=== PATIENT | female | born 1990 | race African-American/Black ===

== ENCOUNTER 2017-04-16 09:26 | Emergency (ER) | payer OTHER ==
[~2017-04-16] VITALS: Ht 165.1 cm; Wt 81.6 kg
[2017-04-16] MEDS ORDERED: NKM (09:39)
[2017-04-16 09:55] VITALS: BP 122/79
[2017-04-16] MEDS ORDERED: Fluorescein Strips ONE (10:02)
[2017-04-16] MEDS ORDERED: Tetracaine 0.5% Opth 4ml Soln ONE (10:02)
[2017-04-16] MEDS ORDERED: Fluorescein Strips BOTH EYES ONE (10:15)
[2017-04-16] MEDS ORDERED: Tetracaine 0.5% Opth 4ml Soln LEFT EYE ONE (10:15)
[2017-04-16 10:21] VITALS: BP 122/79
--- NOTE | 2017-04-16 11:15 | Emergency Room Report ---
History of Present Illness General Chief Complaint: Headache Source: Patient Present Illness HPI 27-year-old female, presenting with headache and eye pain, states that she got hit by her drumming steak yesterday. Complaining of pain to eye, denies any foreign body sensation. No blurry vision. Headache is around right-sided, throbbing, has not taken any pain medication. No nausea vomiting. No motor or sensory weakness Allergies: Coded Allergies: No Known Allergies (Unverified , 04/16/17) Patient History Past Medical History: see triage record Past Surgical History: none Pertinent Family History: none Now: No Reviewed Nursing Documentation: PMH: Agreed, PSxH: Agreed Nursing Documentation-PMH Past Medical History: No Stated History Review of Systems All Other Systems: negative except mentioned in HPI Physical Exam Vital Signs Date Time Temp Pulse Resp B/P (MAP) Pulse Ox O2 Delivery O2 Flow Rate FiO2 04/16/17 09:34 97.9 71 17 122/79 98 Room Air 97.9 Sp02 EP Interpretation: reviewed, normal General Appearance: alert, GCS 15, non-toxic, mild distress Head: normocephalic, atraumatic Eyes: right eye Scleral Injection, right eye other - No foreign body noted, extraocular movements intact, visual examination with fluorescein stain, no corneal abrasion ENT: normal ENT inspection, normal pharynx, normal voice, moist mucus membranes Neck: normal inspection, full range of motion, supple Respiratory: normal inspection, lungs clear, normal breath sounds, no respiratory distress, no retraction, no wheezing, speaking full sentences, chest symmetrical Cardiovascular #1: normal inspection, regular rate, rhythm, normal capillary refill Cardiovascular #2: 2+ radial (R), 2+ radial (L) Gastrointestinal: normal inspection, non tender, soft, non-distended, no guarding Musculoskeletal: normal inspection, back normal, normal range of motion, non- tender Neurologic: normal inspection, alert, oriented x3, responsive, food taster III-XII nml as tested, motor strength/tone normal, sensory intact, normal gait, speech normal Psychiatric: normal inspection, judgement/insight normal, memory normal Skin: normal inspection, normal color, no rash, warm/dry, well hydrated, normal turgor Medical Decision Making Diagnostic Impression: Primary Impression: Acute right eye pain ER Course 27-year-old female with right eye pain DDX: Contusion, there is no corneal abrasion on fluorescein stain Plan: None ER course: Patient has remained stable during ED stay. Disposition: Patient is to be discharged to home. Patient is instructed to follow up with their primary care doctor within 5 days. Strict return precautions discussed with patient such as worsening/severe headache, blurry vision, nausea, vomiting, which may indicate severe illness. Patient verbalizes understanding and agrees with plan. Please note that this Emergency Department Report was dictated using Fancorpsstacker driver technology software, occasionally this can lead to erroneous entry secondary to interpretation by the dictation equipment Last Vital Signs Date Time Temp Pulse Resp B/P (MAP) Pulse Ox O2 Delivery O2 Flow Rate FiO2 04/16/17 10:21 97.9 78 17 122/79 98 Room Air 97.9 Disposition: HOME, SELF-CARE Condition: Improved Referrals: OMAR WASHINGTON,REFERRING (PCP) Patient Instructions: Eye Contusion, [id number] Dashawn Vizcaino M.D. Apr 16, 2017 11:15
== END 2017-04-16 10:47 | disposition home or self-care (01) ==
LOC: EMR 09:30
DX: H57.11 Ocular pain, right eye (principal)
CPT/HCPCS: 99282

== ENCOUNTER 2017-07-23 10:53 | Emergency (ER) | payer OTHER ==
[~2017-07-23] VITALS: Ht 167.6 cm; Wt 88.5 kg
[~2017-07-23 10:53] MED LIST: NKM
[2017-07-23 10:56] VITALS: BP 125/83
[2017-07-23] MEDS ORDERED: CEPHALEXIN500 MG ORAL (11:34)
[2017-07-23] MEDS ORDERED: BACTRIM DS TAB1 EAC1 ORAL (11:34)
[2017-07-23 11:46] VITALS: BP 125/83
--- NOTE | 2017-07-24 07:00 | Emergency Room Report ---
History of Present Illness General Chief Complaint: Skin Rash/Abscess Source: Patient Present Illness HPI 27-year-old female presents ED for evaluation of abscess to her face. States that it started last week started getting larger on and has been this size since. Denies any pain. Denies any fevers or chills. Denies any discharge. Also notes healing abscesses to her inner thighs but states that he did not require any intervention at this time. States she's had an abscess on her back before that required lancing states it was very painful. No other aggravating or relieving factors. Denies any other associated symptoms Allergies: Coded Allergies: No Known Allergies (Unverified , 04/16/17) Patient History Past Medical History: none Past Surgical History: none Pertinent Family History: none Social History: Denies: smoking, alcohol use, drug use Last Menstrual Period: 07/21/17 Now: No Immunizations: UTD Reviewed Nursing Documentation: PMH: Agreed; PSxH: Agreed Nursing Documentation-PMH Past Medical History: No Stated History Review of Systems All Other Systems: negative except mentioned in HPI Physical Exam Vital Signs Date Time Temp Pulse Resp B/P (MAP) Pulse Ox O2 Delivery O2 Flow Rate FiO2 07/23/17 10:56 18 125/83 99 Room Air 07/23/17 10:56 97.9 59 97.9 Sp02 EP Interpretation: reviewed, normal General Appearance: no apparent distress, alert, GCS 15, non-toxic Head: normocephalic Eyes: bilateral eye normal inspection, bilateral eye PERRL ENT: hearing grossly normal, normal pharynx, no angioedema, normal voice Neck: full range of motion, supple/symm/no masses Respiratory: normal inspection Cardiovascular #1: normal inspection Gastrointestinal: normal inspection Rectal: deferred Genitourinary: no CVA tenderness Musculoskeletal: normal inspection Neurologic: alert, oriented x3, responsive, motor strength/tone normal, sensory intact, speech normal Psychiatric: judgement/insight normal, memory normal, mood/affect normal, no suicidal/homicidal ideation Skin: other - 1x1cm abscess to R cheek. mild fluctuant. no drainage. no surrounding erythema/induration Lymphatic: normal inspection Medical Decision Making Diagnostic Impression: Primary Impression: Abscess ER Course Hospital Course 27-year-old female presents ED complaining of swelling to her face Differential diagnoses include: Cellulitis, dermatitis, insect bite, abscess Clinical course Patient placed on stretcher. After initial history, physical exam reveals a young female in no acute distress. On exam there is a 1 x 1 cm abscess to the right cheek. There is some fluctuance. There is no discharge. On exam of the oral cavity does no evidence of a dental abscess. No evidence of dental caries. Discussed findings with the patient. I explained that best therapy is likely incision and drainage. Patient states that last time it was very painful and she would like to try conservative therapy first. We'll prescribe antibiotics at this time but expected to patient that if symptoms do not improve she should return to ED for IND Diagnosis - abscess stable and discharged to home with prescription for bactrim, Keflex. Instructed to followup with PMD. Instructed return to ED if symptoms recur or worsen Last Vital Signs Date Time Temp Pulse Resp B/P (MAP) Pulse Ox O2 Delivery O2 Flow Rate FiO2 07/23/17 11:46 97.9 18 125/83 99 Room Air 97.9 07/23/17 10:56 59 Status: improved Disposition: HOME, SELF-CARE Condition: Stable Scripts Trimethoprim/Sulfamethoxazole 160/800* (BACTRIM DS TABLET*) 1 Each Tablet 1 TAB ORAL Q12H, #14 TAB 0 Refills Prov: Lucas Ortiz MD 07/23/17 Cephalexin* (KEFLEX*) 500 Mg Capsule 500 MG ORAL EVERY 6 HOURS, #28 CAP Prov: Lucas Ortiz MD 07/23/17 Referrals: NON PHYSICIAN (PCP) Patient Instructions: Abscess Lucas Ortiz MD July 24, 2017 07:00
== END 2017-07-23 12:30 | disposition home or self-care (01) ==
LOC: EMR 12:26
DX: L02.01 Cutaneous abscess of face (principal)
CPT/HCPCS: 99284

== ENCOUNTER 2018-04-02 08:41 | Emergency (ER) | payer OTHER ==
[~2018-04-02] VITALS: Ht 167.6 cm; Wt 86.2 kg
[~2018-04-02 08:41] MED LIST changes: +BACTRIM DS TAB1 EAC1 ORAL; +CEPHALEXIN500 MG ORAL; +CLINDAMYCIN PHO30 GM TP; +DOXYCYCLINE MO100 MG ORAL
[2018-04-02 08:54] VITALS: BP 128/84
--- NOTE | 2018-04-02 08:54 | NUR ---
ED Nurse Note: PT WALKED IN TO ER TODAY FROM HOME. AOX4. PT C/O NAUSEA, MULTIPLE EPISODES OF VOMITING AND DIARRHEA X 5 DAYS AGO. PT STATES SHE HASN'T BEEN ABLE TO EAT MUCH THE LAST FEW DAYS SO SHE HAS BEEN VOMITING WATER. PT STATES SHE HAD A FEVER X 5 DAYS AGO. ORAL TEMP AT BEDSIDE: 98.4F. PT ALSO C/O HEADACHE, PAIN 5/10, DUE TO VOMITING. ACTIVE BOWEL SOUDNS IN ALL QUADRANTS. ABDOMEN NONDISTENDED AND NONTENDER TO PALPATION. LAST BM X 2 DAYS AGO WHICH PT STATES WAS LIQUID.
--- NOTE | 2018-04-02 09:18 | NUR ---
ED Nurse Note: URINE AND FLU SWAB SENT TO LAB.
[2018-04-02 09:26] LABS: APPEARANCE,URINE SLIGHTLY CLOUDY; BILIRUBIN, URINE 1+ (NEGATIVE); COLOR,URINE BROWN; GLUCOSE, URINE (UA) NEGATIVE (NEGATIVE); KETONES,URINE 3+ (NEGATIVE); LEUKOCYTE ESTERASE ,URINE 1+ (NEGATIVE); NITRITE,URINE NEGATIVE (NEGATIVE); PH,URINE 6 (4.5-8.0); PROTEIN,URINE 3+ (NEGATIVE); UROBILINOGEN,URINE 1 MG/DL (0.0-1.0)
--- NOTE | 2018-04-02 09:54 | Emergency Room Report ---
History of Present Illness General Chief Complaint: Flu Like Symptoms Source: Patient Present Illness HPI This patient states that for the past 6 days she has had nausea, intermittent vomiting and diarrhea. She states she's also had bodyaches and fatigue. She did have a fever in the first few days of the illness. She states she does continue to have nausea and intermittent vomiting. She states the diarrhea has resolved. She denies abdominal pain. She denies chest pain or shortness of breath. She has had an intermittent cough. She denies sore throat. She denies headache or neck pain. She has no other complaints. Allergies: Coded Allergies: No Known Allergies (Unverified , 04/02/18) Patient History Past Medical History: none, see triage record Social History: Denies: smoking, alcohol use, drug use Last Menstrual Period: Feb 2018 Now: No Reviewed Nursing Documentation: PMH: Agreed; PSxH: Agreed Nursing Documentation-PMH Past Medical History: No Stated History Review of Systems All Other Systems: negative except mentioned in HPI Physical Exam Vital Signs Date Time Temp Pulse Resp B/P (MAP) Pulse Ox O2 Delivery O2 Flow Rate FiO2 04/02/18 08:44 98.2 91 16 126/88 96 Room Air Sp02 EP Interpretation: reviewed, normal General Appearance: no apparent distress, alert, GCS 15, non-toxic Head: normocephalic, atraumatic Eyes: bilateral eye normal inspection, bilateral eye PERRL ENT: hearing grossly normal, normal pharynx, no angioedema, normal voice Neck: full range of motion, supple/symm/no masses Respiratory: chest non-tender, lungs clear, normal breath sounds, no respiratory distress, no retraction, no accessory muscle use, speaking full sentences Cardiovascular #1: regular rate, rhythm, no edema Gastrointestinal: normal bowel sounds, non tender, soft, non-distended, no guarding, no rebound Rectal: deferred Musculoskeletal: back normal, gait/station normal, normal range of motion, non- tender Neurologic: alert, oriented x3, responsive, motor strength/tone normal, sensory intact, speech normal Psychiatric: judgement/insight normal, memory normal, mood/affect normal, no suicidal/homicidal ideation Skin: normal color, no rash, warm/dry, well hydrated Medical Decision Making Diagnostic Impression: Primary Impression: Gastroenteritis Additional Impressions: Viral syndrome UTI (urinary tract infection) ER Course This patient has a clinical presentation consistent with gastroenteritis. The patient's abdominal exam was benign. I do not suspect cholecystitis, pancreatitis, appendicitis or diverticulitis based on history and physical and laboratory workup. This is likely viral in etiology. The patient's urinalysis appears contaminated. However, given the ongoing symptoms I felt I should place the patient on a course of antibiotics as a precaution. The patient is nontoxic and nonsurgical at this time. The patient was given return precautions and followup instructions. Laboratory Tests Test 04/02/18 09:16 Urine Color Brown Urine Appearance Slightly cloudy Urine pH 6 (4.5-8.0) Urine Specific [place] 1.020 (1.005-1.035) Urine Protein 3+ (NEGATIVE) H Urine Glucose (UA) Negative (NEGATIVE) Urine Ketones 3+ (NEGATIVE) H Urine Blood 1+ (NEGATIVE) H Urine Nitrite Negative (NEGATIVE) Urine Bilirubin 1+ (NEGATIVE) H Urine Ictotest Pending Urine Urobilinogen 1 MG/DL (0.0-1.0) H Urine Leukocyte Esterase 1+ (NEGATIVE) H Urine RBC 0-2 /HPF (0 - 2) Urine WBC 5-10 /HPF (0 - 2) H Urine Squamous Epithelial Cells Occasional /LPF Urine Bacteria Moderate /HPF (NONE) H Urine Mucus Moderate /LPF (NONE/OCC) H Urine HCG, Qualitative Negative (NEGATIVE) Microbiology Date/Time Source Procedure Growth Status 04/02/18 09:16 Nasal Nares Influenza Types A,B Antigen (AJ) - Final Complete Last Vital Signs Date Time Temp Pulse Resp B/P (MAP) Pulse Ox O2 Delivery O2 Flow Rate FiO2 04/02/18 08:54 98.4 84 17 128/84 98 Room Air Status: improved Disposition: HOME, SELF-CARE Condition: Improved Scripts Nitrofurantoin Monohyd/M-Cryst* (MACROBID 100 MG*) 100 Mg Capsule 100 MG ORAL EVERY 12 HOURS, #14 CAP Prov: Gale Beltre DO 04/02/18 Ondansetron Odt* (ZOFRAN ODT*) 8 Mg Tab.rapdis 8 MG ORAL Q6H PRN for Nausea & Vomiting, #10 TAB Prov: Gale Beltre DO 04/02/18 Referrals: OMAR WASHINGTON,REFERRING (PCP) Gale Beltre DO Apr 02, 2018 09:54
[2018-04-02] MEDS ORDERED: NITROFURANTOIN100 M2 ORAL (09:56)
[2018-04-02] MEDS ORDERED: ZOFRAN ODT8 MG ORAL (09:56)
[2018-04-02 11:21] VITALS: BP 124/82
--- NOTE | 2018-04-02 11:21 | NUR ---
ED Nurse Note: PT LAYING PEACEFULLY IN BED IN NAD. AOX4. PRESCRIPTIONS AND DISCHARGE PAPERWORK EXPLAINED TO PT. PT VERBALIZES UNDERSTANDING AND ALL QUESTIONS ANSWERED. PRESCRIPTIONS AND DISCHARGE PAPERWORK GIVEN TO PT, IV AND ID WRISTBAND REMOVED. PT WALKED OUT OF ER WITH STEADY GAIT AND ALL BELONGINGS.
[2018-04-03] MEDS ORDERED: PROTONIX40 MG ORAL (14:46)
[2018-04-03] MEDS ORDERED: CAPSAICIN60 GM TP (14:46)
== END 2018-04-02 11:22 | disposition home or self-care (01) ==
LOC: EMR 09:12
DX: K52.9 Noninfective gastroenteritis and colitis, unspecified (principal); N39.0 Urinary tract infection, site not specified; B34.9 Viral infection, unspecified
CPT/HCPCS: 81003; 81025; 86710; 87086; 96361; 96374; 99284; J2405

== ENCOUNTER 2018-04-03 11:12 | Emergency (ER) | payer OTHER ==
[~2018-04-03] VITALS: Ht 170.2 cm; Wt 88.5 kg
[~2018-04-03 11:12] MED LIST changes: +NITROFURANTOIN100 M2 ORAL; +ZOFRAN ODT8 MG ORAL
--- NOTE | 2018-04-03 11:23 | NUR ---
ED Nurse Note: Pt came in due to vomiting on and off since . Pt states it was a dark red vomit and for today it was just saliva. Pt AAO x4, ambulatory wtih no signs of dehydration.
[2018-04-03 12:46] VITALS: BP 106/71
[2018-04-03] MEDS ORDERED: Metoclopramide 10mg/2ml Inj IVP ONE (13:15)
[2018-04-03 13:20] LABS: HEMATOCRIT 37.9 % (37.0-47.0); MEAN CORPUSCULAR VOLUME 87 FL (80-99); PLATELET COUNT 161 K/UL (150-450); RED BLOOD COUNT 4.36 M/UL (4.20-5.40); RED CELL DISTRIBUTION WIDTH 14.7 % (11.6-14.8); WHITE BLOOD COUNT 3.6 K/UL (4.8-10.8)
[2018-04-03 13:30] LABS: ANION GAP 9 mmol/L (5-15); BLOOD UREA NITROGEN 5 mg/dL (7-18); CALCIUM 9.3 MG/DL (8.5-10.1); CARBON DIOXIDE 27 MMOL/L (21-32); CHLORIDE 102 MMOL/L (98-107); CREATININE 0.7 MG/DL (0.55-1.30); POTASSIUM 4.5 MMOL/L (3.5-5.1); SODIUM 138 MMOL/L (136-145)
[2018-04-03 13:35] LABS: ALANINE AMINOTRANSFERASE 17 U/L (12-78); ALBUMIN 3.5 G/DL (3.4-5.0); ALBUMIN/GLOBULIN RATIO 0.8 (1.0-2.7); ALKALINE PHOSPHATASE 57 U/L (46-116); ASPARTATE AMINO TRANSFERASE 27 U/L (15-37); BILIRUBIN,TOTAL 0.4 MG/DL (0.2-1.0)
--- NOTE | 2018-04-03 14:44 | Emergency Room Report ---
History of Present Illness General Chief Complaint: Vomiting Source: Patient Present Illness HPI 28-year-old female presents to the emergency department complaining of 7/10 in severity persistent vomiting 3 days. Patient reports that she was here in the emergency department yesterday and was given medications which she took at home and they are not working. The patient states her last episode of vomiting ended wtih dark red blood mixed into the vomitus. Denies hx of anemia. Denies weakness, Dizziness or VÁSQUEZ. Pt. denies recent head trauma. Patient denies fevers , chills, blood in the stool or dark tarry stool. She does endorse marijuana use. Patient denies . pt. reports having URI symptoms last weekend. Pt. Allergies: Coded Allergies: No Known Allergies (Unverified , 04/02/18) Patient History Past Medical History: see triage record Past Surgical History: none Pertinent Family History: none Last Menstrual Period: 03/08/18 Now: No : 0 Reviewed Nursing Documentation: PMH: Agreed; PSxH: Agreed Nursing Documentation-PMH Past Medical History: No Stated History Review of Systems All Other Systems: negative except mentioned in HPI Physical Exam Vital Signs Date Time Temp Pulse Resp B/P (MAP) Pulse Ox O2 Delivery O2 Flow Rate FiO2 04/03/18 11:13 98.2 72 18 97 Room Air 04/03/18 12:46 106/71 Medical Decision Making PA Attestation Dr. Mariano is my supervising Physician whom patient management has been discussed with. Diagnostic Impression: Primary Impression: Cyclical vomiting syndrome Qualified Codes: G43.A0 - Cyclical vomiting, not intractable ER Course 28-year-old female presents to the emergency department complaining of 7/10 in severity persistent vomiting 3 days. Patient reports that she was here in the emergency department yesterday and was given medications which she took at home and they are not working. The patient states her last episode of vomiting ended wtih dark red blood mixed into the vomitus. Denies hx of anemia. Denies weakness, Dizziness or VÁSQUEZ. Pt. denies recent head trauma. Patient denies fevers , chills, blood in the stool or dark tarry stool. She does endorse marijuana use. Patient denies . pt. reports having URI symptoms last weekend. Pt. Ddx considered but are not limited to GE, colitis, acute appy, SBO, Cyclical Vomiting secondary to THC, * Vital signs: pt. is afebrile, H&PE are most consistent with Cannabinoid induced cyclical vomiting, no evidence to suggest acute abdomen on physical exam. ORDERS: -None required at this time, the dx is clinical. -Urine Hcg: Negative -UDS: POSITIVE for THC -CBC: unremarkable -BMP: unremarkable ED INTERVENTIONS: -1000 NS iv hydration, -Reglan - Protonix PO DISCHARGE: At this time pt. is stable for d/c to home. Will provide printed patient care instructions, and any necessary prescriptions. Care plan and follow up instructions have been discussed with the patient prior to discharge. Labs Test 04/03/18 13:10 White Blood Count 3.6 K/UL (4.8-10.8) Red Blood Count 4.36 M/UL (4.20-5.40) Hemoglobin 12.0 G/DL (12.0-16.0) Hematocrit 37.9 % (37.0-47.0) Mean Corpuscular Volume 87 FL (80-99) Mean Corpuscular Hemoglobin 27.5 PG (27.0-31.0) Mean Corpuscular Hemoglobin Concent 31.7 G/DL (32.0-36.0) Red Cell Distribution Width 14.7 % (11.6-14.8) Platelet Count 161 K/UL (150-450) Mean Platelet Volume 6.8 FL (6.5-10.1) Neutrophils (%) (Auto) % (45.0-75.0) Lymphocytes (%) (Auto) % (20.0-45.0) Monocytes (%) (Auto) % (1.0-10.0) Eosinophils (%) (Auto) % (0.0-3.0) Basophils (%) (Auto) % (0.0-2.0) Differential Total Cells Counted 100 Neutrophils % (Manual) 41 % (45-75) Lymphocytes % (Manual) 52 % (20-45) Monocytes % (Manual) 7 % (1-10) Eosinophils % (Manual) 0 % (0-3) Basophils % (Manual) 0 % (0-2) Band Neutrophils 0 % (0-8) Platelet Estimate Adequate Platelet Morphology Normal Hypochromasia 1+ Urine HCG, Qualitative Negative (NEGATIVE) Sodium Level 138 MMOL/L (136-145) Potassium Level 4.5 MMOL/L (3.5-5.1) Chloride Level 102 MMOL/L (98-107) Carbon Dioxide Level 27 MMOL/L (21-32) Anion Gap 9 mmol/L (5-15) Blood Urea Nitrogen 5 mg/dL (7-18) Creatinine 0.7 MG/DL (0.55-1.30) Estimat Glomerular Filtration Rate > 60 mL/min (>60) Glucose Level 95 MG/DL (74-106) Calcium Level 9.3 MG/DL (8.5-10.1) Total Bilirubin 0.4 MG/DL (0.2-1.0) Aspartate Amino Transf (AST/SGOT) 27 U/L (15-37) Alanine Aminotransferase (ALT/SGPT) 17 U/L (12-78) Alkaline Phosphatase 57 U/L (46-116) Total Protein 7.7 G/DL (6.4-8.2) Albumin 3.5 G/DL (3.4-5.0) Globulin 4.2 g/dL Albumin/Globulin Ratio 0.8 (1.0-2.7) Urine Opiates Screen Negative (NEGATIVE) Urine Barbiturates Screen Negative (NEGATIVE) Phencyclidine (PCP) Screen Negative (NEGATIVE) Urine Amphetamines Screen Negative (NEGATIVE) Urine Benzodiazepines Screen Negative (NEGATIVE) Urine Cocaine Screen Negative (NEGATIVE) Urine Marijuana (THC) Screen Positive (NEGATIVE) Last Vital Signs Date Time Temp Pulse Resp B/P (MAP) Pulse Ox O2 Delivery O2 Flow Rate FiO2 04/03/18 12:46 97.7 77 18 106/71 98 Room Air Disposition: HOME, SELF-CARE Condition: Stable Scripts Pantoprazole* (PROTONIX*) 40 Mg Tablet.dr 40 MG ORAL DAILY for 5 Days, #5 TAB Prov: Pam Hernández 04/03/18 Capsaicin (CAPSAICIN) 60 Gm Cream..g. 1 APPLIC TP BID, #60 GM Prov: Pam Hernández 04/03/18 Referrals: OMAR WASHINGTON,REFERRING (PCP) Patient Instructions: Nausea and Vomiting, Adult, [id number] Additional Instructions: Take medications as directed. Avoid THC products for at least 1 week. Follow up with a Primary Care Provider in 3-5 days, even if your symptoms have resolved. --Please review list of primary care clinics, if you do not already have a primary care provider Return sooner to ED if new symptoms occur, or current symptoms become worse. - Please note that this Emergency Department Report was dictated using [employer] warden technology software, occasionally this can lead to erroneous entry secondary to interpretation by the dictation equipment. Pam Hernández Apr 03, 2018 14:44
[2018-04-03] MEDS ORDERED: CAPSAICIN60 GM TP (14:46)
[2018-04-03] MEDS ORDERED: PROTONIX40 MG ORAL (14:46)
[2018-04-03 15:01] VITALS: BP 115/87
--- NOTE | 2018-04-03 15:01 | NUR ---
ED Nurse Note: Pt cleared by PA for discharge. ACI/prescription was given and explained to pt and verbalized understanding of teachings provided. All medical devices such as ID band/IV removed. Pt is AAO x4, ambulatory and left with all personal belongings. Pt left with her mother.
== END 2018-04-03 15:01 | disposition home or self-care (01) ==
LOC: EMR 12:20
DX: G43.A0 Cyclical vomiting, in migraine, not intractable (principal)
CPT/HCPCS: 36415; 80053; 80307; 81025; 85007; 85025; 96361; 96374; 96375; 99284; J2765; S0028

== ENCOUNTER 2019-06-29 07:46 | Emergency (ER) | payer OTHER ==
[~2019-06-29] VITALS: Ht 167.6 cm; Wt 89.8 kg
[~2019-06-29 07:46] MED LIST changes: +CAPSAICIN60 GM TP; +PROTONIX40 MG ORAL
[2019-06-29 07:48] VITALS: BP 121/62
--- NOTE | 2019-06-29 07:58 | NUR ---
ED Nurse Note: patient walked into ED from home c/o rash to body started yesterday patient reports itchiness. sully has rash on her bilatera arms, legs, and on the back. paient is alert awake x4 ambulatory steady gait. patient is speaking in full sentences, no respiratory distress noted and vitals stable. patient reports no known allergy, but reports suspicion regarding kiwi that she ate yesterday.
[2019-06-29] MEDS ORDERED: DiphenhydrAMINE 25mg/10ml Elixir ORAL ONE (08:00)
[2019-06-29] MEDS ORDERED: FAMOTIDINE20 MG ORAL (08:01)
[2019-06-29] MEDS ORDERED: BENADRYL25 MG ORAL (08:01)
[2019-06-29] MEDS ORDERED: MEDROL DOSEPAK4 MG ORAL (08:01)
[2019-06-29 08:11] VITALS: BP 121/62
--- NOTE | 2019-06-29 08:12 | NUR ---
ER DISCHARGE NOTE: Patient is cleared to be discharged per ZEENAT MCCABE, pt is aox4, on room air, with stable vital signs. pt was given dc and prescription instructions, pt was able to verbalize understanding, pt id band removed without complications. pt is able to ambulate with steady gait. pt took all belongings.
--- NOTE | 2019-06-29 08:28 | Emergency Room Report ---
History of Present Illness General Chief Complaint: Allergic Reaction Source: Patient Present Illness HPI Patient presents with complaints of reaction and skin allergy diffusely Upper arms abdominal area back and legs patient reports that she woke up like this Denies any shortness of breath or Upper airway difficulty Denies any itching in the back of the throat Patient reports using a cream on her skin which she has used before also reports eating a kiwi which was Somewhat out of the usual for her Denies any fevers or chills denies any chest pain Allergies: Coded Allergies: No Known Allergies (Unverified , 04/02/18) COVID-19 Screening Contact w/high risk pt: No Recent Travel to affected area: No Experienced COVID-19 symptoms?: No Patient History Past Medical History: see triage record Last Menstrual Period: last month Now: No Reviewed Nursing Documentation: PMH: Agreed; PSxH: Agreed Nursing Documentation-PMH Past Medical History: No Stated History Review of Systems All Other Systems: negative except mentioned in HPI Physical Exam Vital Signs Date Time Temp Pulse Resp B/P (MAP) Pulse Ox O2 Delivery O2 Flow Rate FiO2 06/29/19 07:48 98.4 69 18 121/62 97 Room Air Sp02 EP Interpretation: reviewed, normal General Appearance: well appearing, no apparent distress Head: normocephalic, atraumatic Eyes: bilateral eye PERRL, bilateral eye EOMI ENT: hearing grossly normal, normal pharynx, TMs + canals normal, uvula midline Neck: full range of motion, supple, no meningismus, no bony tend Respiratory: lungs clear, normal breath sounds, no rhonchi, no respiratory distress, no retraction, no accessory muscle use Cardiovascular #1: normal peripheral pulses, regular rate, rhythm, no edema, no gallop, no JVD, no murmur Gastrointestinal: normal bowel sounds, non tender, soft, no mass, no organomegaly, non-distended, no guarding, no hernia, no pulsatile mass, no rebound Musculoskeletal: normal inspection Neurologic: motor strength/tone normal, 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, oriented x3 , sensory intact, responsive Psychiatric: mood/affect normal Skin: other - There is a fine diffuse rash involving upper arms and upper back patient also has some urticaria in the upper thigh medially no obvious dermatomal spread no target cell appearance no obvious petechiae Lymphatic: normal inspection, no adenopathy Medical Decision Making Diagnostic Impression: Primary Impression: Allergic reaction Additional Impression: dermatitis ER Course Patient's presentation appears to be consistent with allergic reaction Unknown regarding the source however patient does not have any airway pathology She is treated conservatively with oral medications Discussed regarding avoiding any creams And will follow closely with primary physician Last Vital Signs Date Time Temp Pulse Resp B/P (MAP) Pulse Ox O2 Delivery O2 Flow Rate FiO2 06/29/19 08:11 98.4 69 18 121/62 97 Room Air Status: improved Disposition: HOME, SELF-CARE Condition: Improved Scripts Diphenhydramine Hcl* (BENADRYL*) 25 Mg Capsule 25 MG ORAL Q6H PRN for Itching, #20 CAP Prov: Lovely Gupta DO 06/29/19 Methylprednisolone (Methylprednisolone*) 4MG Dspk 4 MG ORAL DIRECTED for 6 Days, #21 EA 0 Refills Day 1: Two tablets before breakfast, one after lunch, one after dinner, and two at bedtime. If started late in the day, take all six tablets at once or divide into two or three doses, unless otherwise directed by prescriber. Day 2: One tablet before breakfast, one after lunch, one after dinner, and two at bedtime Day 3: One tablet before breakfast, one after lunch, one after dinner, and one at bedtime Day 4: One tablet before breakfast, one after lunch, and one at bedtime Day 5: One tablet before breakfast and one at bedtime Day 6: One tablet before breakfast Prov: Lovely Gupta DO 06/29/19 Famotidine* (Pepcid 20mg tablet*) 20 Mg Tablet 20 MG ORAL DAILY, #30 TAB 0 Refills Prov: Lovely Gupta DO 06/29/19 Referrals: [facility] Patient Instructions: Allergies, [id number], Food Allergy, [id number] Additional Instructions: Patient is provided with the discharge instructions notified to follow up with primary doctor in the next 2-3 days otherwise return to the er with any worsening symptoms. Please note that this report is being documented using DRAGON technology. This can lead to erroneous entry secondary to incorrect interpretation by the dictating instrument. Lovely Gupta DO June 29, 2019 08:28
== END 2019-06-29 08:12 | disposition home or self-care (01) ==
LOC: EMR 07:57
DX: T78.40XA Allergy, unspecified, initial encounter (principal); X58.XXXA Exposure to other specified factors, initial encounter; L30.9 Dermatitis, unspecified
CPT/HCPCS: J7512; Z7502; 99282